=== PATIENT | male | born 1995 | race African-American/Black ===

== ENCOUNTER 2025-02-13 10:43 | Emergency (ER) | payer SELFPAY ==
[~2025-02-13] VITALS: Ht 185.4 cm; Wt 70.0 kg
[2025-02-13 11:00] VITALS: O2SAT 99
[2025-02-13] MEDS ORDERED: IBUP-2029 MT (12:34)
[2025-02-13 13:16] VITALS: BP 127/77; PULSE 71; RESP 18; TEMP 36.9; O2SAT 99
== END 2025-02-13 13:18 | disposition home or self-care (01) ==
LOC: ER 10:43
DX: S93.409A Sprain of unspecified ligament of unspecified ankle, initial encounter (principal); W17.89XA Other fall from one level to another, initial encounter; Y93.89 Activity, other specified; Y92.89 Other specified places as the place of occurrence of the external cause; Y99.8 Other external cause status
CPT/HCPCS: 73630; 99283